=== PATIENT | female | born 1965 | race Caucasian/White ===

== ENCOUNTER 2016-12-03 12:35 | Day surgery (SDC) | payer OTHER ==
[~2016-12-03] VITALS: Ht 170.2 cm; Wt 65.7 kg
[2016-12-03 13:03] VITALS: Ht 170.2 cm; Wt 65.7 kg
[2016-12-03] MEDS ORDERED: AMIT10TA6 PO (13:10)
[2016-12-03 14:12] VITALS: BP 112/77; PULSE 100; RESP 20
[2016-12-03] MEDS ORDERED: FENTAnyl 50 MCG/ML VIAL ONE (15:02)
[2016-12-03] MEDS ORDERED: MIDAZOLAM 1 MG/ML 2 ML INJ ONE ×3 (15:02→15:03)
--- NOTE | 2016-12-03 15:05 | GILP ---
DATE OF PROCEDURE: NAME OF PROCEDURE: Colonoscopy. SURGEON: Noy Ballard MD PREOPERATIVE DIAGNOSIS: Positive occult blood in the stool. POSTOPERATIVE DIAGNOSES: 1. Colonoscopy all the way to the cecum. 2. Internal and external hemorrhoids. 3. No colon neoplasm was identified. INDICATION FOR THE PROCEDURE: Ms. Fidel Malhotra is a 51-year-old female patient who was schedule d for screening colonoscopy. The patient had positive occult blood in the stool. The procedure and possible complications were well explained to the patient. The patient understood and consented to the procedure. DESCRIPTION OF PROCEDURE: Under the influence of fentanyl and Versed the colonoscope was carefully introduced in the rectum and under direct vision it was advanced all the way to the cecum. FINDINGS: The patient had internal and external hemorrhoids. No colitis or neoplasm was identified . The patient tolerated the procedure very well and there was no complication from the procedure. At the end of the procedure she was awake with stable vital signs and she was discharged home to the ca re of her family. IMPRESSION: 1. Colonoscopy all the way to the cecum. 2. Internal and external hemorrhoids. 3. No colon neoplasm was identified. PLAN: Next screening colonoscopy in 10 years. Dictated By: NOY KLEIN/CHUCK Conf#: [id number] DID#: [id number]
[2016-12-03 15:15] VITALS: BP 106/69; PULSE 85; RESP 16
== END 2016-12-03 15:45 | disposition home or self-care (01) ==
LOC: GIL 12:35
PROVIDERS: ATTEND Internal Medicine Gastroenterology
DX: K64.8 Other hemorrhoids (principal); K64.4 Residual hemorrhoidal skin tags
CPT/HCPCS: 45378; J2250; J3010